=== PATIENT | female | born 1950 | race Caucasian/White ===

== ENCOUNTER 2024-06-07 11:20 | Outpatient (CLI) | payer OTHER | END 2024-06-07 11:27 | disposition home or self-care (01) | LOC: TOM 11:20 | PROVIDERS: ATTEND Internal Medicine Gastroenterology | DX: K57.30 Diverticulosis of large intestine without perforation or abscess without bleeding (principal); Z86.010 Personal history of colon polyps; K56.600 Partial intestinal obstruction, unspecified as to cause ==